=== PATIENT | male | born 1965 ===

== ENCOUNTER 2017-04-10 07:57 | Emergency (ER) | payer OTHER ==
[~2017-04-10] VITALS: Ht 167.6 cm; Wt 118.6 kg
[2017-04-10 07:59] VITALS: BP 154/91; PULSE 78; RESP 16; O2SAT 99
--- NOTE | 2017-04-10 08:22 | ED.REPORT ---
HPI-Trauma Minor / Fall Date of Service Apr 10, 2017 ED Provider: Tala Fitzpatrick MD The pt is a 51 y/o male w/ a hx of diabetes, neuropathy, and hyperlipidemia presenting to the ED c/o R hip pain onset two days ago. He describes tripping and hitting his R hip and head on the ground. He is still able to walk on it but it hurts. He also describes tingling in his hands and feet since the incident. The pt has smoked marijuana and used Ibuprofen for the pain. Nursing Notes Stated Complaint: FALL A FEW DAYS AGO Chief Complaint: R hip pain Nursing Notes Reviewed: Yes Allergies: Coded Allergies: No Known Allergies (Unverified , 04/10/17) Scheduled PRN oxyCODONE-Acetaminophen 5-325 mg (oxyCODONE-Acetaminophen 5-325 mg) 1 Each Tablet 1 TAB PO Q6H PRN PRN For Pain General Time Seen by MD: 08:22 Chief Complaint Other (R hip pain ) Hx Obtained From: Patient Arrived By: Walk-in Onset Occurred: 2 days ago Recent Healthcare: No recent doctor visit, No recent hospitalization Similar Sx Previous: No Past Medical History Past Medical History Neuropathy; Reports: Diabetes mellitus, Hyperlipidemia Past Surgical History None reported Smoking History Former Smoker Social History PT reports smoking marijuana; Alcohol Use: Denies alcohol use Drug Use: Denies drug use Other Social History: Good social support Ambulatory Status Independent Review of Systems +Paresthesia in hands and feet; Musculoskeletal: Reports: Joint pain (R hip ) Neurologic: Denies: Problem walking Complete sys rev & neg: except as marked. Physical Exam Initial Vital Signs Vital Signs (First) Date Time Temp Pulse Resp B/P Pulse Ox O2 Delivery O2 Flow Rate FiO2 04/10/17 07:59 36.5 78 16 154/91 99 Room Air Initial VS: Reviewed Head / Eyes: Atraumatic, Normocephalic, PERRL ENT: Mucous membranes moist, Conjunctiva normal, No scleral icterus Respiratory: Breath sounds normal, Clear to auscultation, No respiratory distress Cardiovascular: Regular rate & rhythm, Heart sounds normal, Intact distal pulses Neurologic: Alert, Oriented, Nonfocal Psychiatric: Mood/affect normal, Behavior normal, Normal thought content General/Constitutional: Awake, Alert Neck: Atraumatic, Supple, Full range of motion Back: Full range of motion L3 tenderness; Lower Extremity / Pelvis / MS: No deformity Tenderness over R posterior iliac crest; R buttock tenderness w/o bruising. Skin: No rash, Warm, Dry Multiple superficial lesions in various stages of healing that do not appear acutely infected Interpretation & Diagnostics PROCEDURE: X-RAY LUMBAR SPINE, 2 OR 3 VIEW IMPRESSION: Mild to moderate degenerative changes of the lumbar spine without acute fracture evident. Dictated by: Fernandez Riggs M.D. on 04/10/2017 at 8:31 Approved by: Fernandez Riggs M.D. on 04/10/2017 at 8:33 PROCEDURE: CT HIP RIGHT W/O CONTRAST ([id number]) IMPRESSION: No osseous injury identified. Single nutrient canal identified at the anterior cortex of the intertrochanteric right femur. Please note that MR scanning may detect bone bruising or nondisplaced cortical fractures that are not identifiable by plain film or CT scanning. Dictated by: Hamilton Dias M.D. on 04/10/2017 at 10:08 Approved by: Hamilton Dias M.D. on 04/10/2017 at 10:12 X-Ray Interpretation Xray Interpretation: IMPRESSION: No acute fracture of the right hip. Dictated by: Fernandez Riggs M.D. on 04/10/2017 at 8:29 Approved by: Fernandez Riggs M.D. on 04/10/2017 at 8:31 X-Ray Ordered: Pelvis Interpretation / Wet Read by: Interpret - Radiologist Re-Eval/Medical Decision Med Decision/Clinical Course X-rays as well as CT scan of the head don't show any acute fractures. Suspect that his fall is exacerbated his sciatic pain. Referral back to his primary care physician for this. He is reassured regarding the absence of fractures and we discussed anticipated course of healing with pain worse in the 48 hours after a fall Source of Hx: Old records Re-Evaluation/Progress #1: Time of Eval: 09:43 Re-Evaluation/Progress Note: Rechecked pt. Discussed reassuring X-ray results and plans for CT. Re-Evaluation/Progress #2: Time of Eval: 10:44 Re-Evaluation/Progress Note: Pt rechecked. Discussed reassuring imaging results. F/U instructions and RTER warnings given. All questions addressed. Counseled Regarding: Diagnosis, Lab results, Need for follow-up, When/why to return to ED Discharge & Departure Impression: Primary Impression: Fall Encounter type: initial encounter Qualified Code: W19.XXXA - Unspecified fall, initial encounter Additional Impressions: Hip pain Laterality: right Qualified Code: M25.551 - Pain in right hip Back pain Back pain location: low back pain Chronicity: unspecified Back pain laterality: unspecified Sciatica presence: unspecified whether sciatica present Qualified Code: M54.5 - Low back pain Ruled Out: Fracture Disposition: Home Discharge Condition All VS Reviewed: Yes Condition: Stable Additional Instructions: Thank for you entrusting us with your care today. Your X-ray and CT scans showed no signs of a fracture. Follow up with your primary care provider for further treatment of your pain. Please take the pain medication as needed to help you sleep. Taking two Ibuprofen and 1 Percocet together may work better than taking two Percocet at a time. Heat and ice will help as well. Try to stay up and moving will help you heal but make sure not to do anything to aggravate the pain. Please return to the emergency department if you experience any new or worsening symptoms. I hope you feel better soon. Referrals: Ananya Fernando MD Scribe Attestation Portions of this note were transcribed by Mazin Bajwa. I, Dr. Fitzpatrick personally performed the history, physical exam and medical decision-making; I reviewed and confirmed the accuracy of the information in the transcribed note. copies to: Ananya Fernando MD,Tala Danielle MD Apr 10, 2017 08:22 Mazin Bajwa Apr 10, 2017 10:01
--- NOTE | 2017-04-10 09:32 | DRSVH ---
PROCEDURE: X-RAY PELVIS W/LAT HIP (RT) ([id number]) INDICATIONS: fall TECHNIQUE: AP pelvis with lateral view(s) of the right hip(s). COMPARISON: None. FINDINGS: Bones: No displaced fracture or dislocation is evident involving the right hip. Mild cortical irregu larity along the posterosuperior margin of the acetabulum is incidentally noted, which is similar to the contralateral hip. These are felt to represent either os acetabuli or potentially calcified cart ilaginous structures. No suspicious osseous lesions are evident. Mild degenerative changes of the daron mbosacral spine are present. Soft tissues: The visualized bowel gas pattern is normal. Phleboliths are seen within the pelvis. N o suspicious soft tissue calcifications. IMPRESSION: No acute fracture of the right hip. Dictated by: Fernandez Riggs M.D. on 04/10/2017 at 8:29 Approved by: Fernandez Riggs M.D. on 04/10/2017 at 8:31
--- NOTE | 2017-04-10 09:35 | DRSVH ---
PROCEDURE: X-RAY LUMBAR SPINE, 2 OR 3 VIEW INDICATIONS: fall TECHNIQUE: 3 views of the lumbar spine were acquired. COMPARISON: [facility], XR LUMBAR SPINE W OBL MIN 4VW, 02/10/2016, 14:11. FINDINGS: Bones: There are 5 lumbar-type vertebral bodies. The lowest intervertebral disk space is designated a s L5-S1. The vertebral body heights are well-maintained without evidence to suggest an acute compress ion fracture. The bone mineralization is within normal limits. Mild to moderate multilevel degenerative changes of the lumbar spine are primarily evident involving the lower lumbar facet joints. Scattered anterior disc osteophyte complexes are present involving th e lumbar region. There is mild disc height loss at the levels of L2-L3, L4-5, and L5-S1. Grade 1 re trolisthesis of L5 and S1 appears to be present without definite pars defects evident. Soft tissues: There appears to be aortic atherosclerosis. Otherwise, the soft tissues of the imaged abdomen and pelvis are within normal limits. IMPRESSION: Mild to moderate degenerative changes of the lumbar spine without acute fracture evident. Dictated by: Fernandez Riggs M.D. on 04/10/2017 at 8:31 Approved by: Fernandez Riggs M.D. on 04/10/2017 at 8:33
[2017-04-10] MEDS ORDERED: oxyCODONE-Acetamin 5-325 mg Tablet PO ONE (09:40)
--- NOTE | 2017-04-10 10:14 | DRSVH ---
PROCEDURE: CT HIP RIGHT W/O CONTRAST ([id number]) INDICATIONS: unable to bear weight after a fall TECHNIQUE: Noncontrast 3 mm axial sections acquired through the bony pelvis. Additional 3 mm axial sections acq uired through the symptomatic hip joint, with coronal and sagittal reformats. COMPARISON: [facility], CR, XR PELVIS W LATERAL HIP RT, 04/10/2017, 8:57. FINDINGS: Image quality: Excellent. Bones: No fracture or dislocation found. There is what appears to be a single nutrient canal identif iable at the intertrochanteric anterior cortex of the proximal right femur. Soft tissues: No hematoma seen. IMPRESSION: No osseous injury identified. Single nutrient canal identified at the anterior cortex of the intertrochanteric right femur. Please note that MR scanning may detect bone bruising or nondisp laced cortical fractures that are not identifiable by plain film or CT scanning. Dictated by: Hamilton Dias M.D. on 04/10/2017 at 10:08 Approved by: Hamilton Dias M.D. on 04/10/2017 at 10:12
[2017-04-10] MEDS ORDERED: OXYC1TAB24 PO (12:07)
== END 2017-04-10 12:17 | disposition home or self-care (01) ==
LOC: SED 07:57
DX: M25.551 Pain in right hip (principal); M54.5 Low back pain; W01.0XXA Fall on same level from slipping, tripping and stumbling without subsequent striking against object, initial encounter; Y93.01 Activity, walking, marching and hiking; Y92.89 Other specified places as the place of occurrence of the external cause; Y99.8 Other external cause status; E78.5 Hyperlipidemia, unspecified; E11.40 Type 2 diabetes mellitus with diabetic neuropathy, unspecified; Z87.891 Personal history of nicotine dependence
CPT/HCPCS: 72100; 73501; 73700; 96372; 99285; J1885